=== PATIENT | female | born 1980 | race Hispanic/Latino ===

== ENCOUNTER 2024-09-28 07:11 | Emergency (ER) | payer BC ==
[~2024-09-28] VITALS: Ht 154.9 cm; Wt 59.0 kg
[2024-09-28 07:16] VITALS: RESP 18; TEMP 98.3
[2024-09-28] MEDS: SODIUM CHLORIDE 0.9% 1000ML 1,000 ML IV STA (07:37)
[2024-09-28] MEDS: ONDANSETRON HCL INJ 2MG/ML 2ML 2 MG/ML VIAL IV STA (07:37)
[2024-09-28 07:47] VITALS: PULSE 71; O2SAT 100
[2024-09-28] MEDS: KETOROLAC TROMETHAMINE 30 MG/ML VIAL IV STA (07:53)
[2024-09-28 07:59] LABS: BASOPHILS % 0.3 % (0.0-1.0); EOSINOPHILS % 0.2 % (0.0-6.0); HEMOGLOBIN 12.5 g/dL (12.0-16.0); LYMPHOCYTES % 17.4 % (18.0-39.1); MEAN CORPUSCULAR HEMOGLOBIN 26.5 pg (28-32); MEAN CORPUSCULAR HGB CONC 32.9 g/dL (31-35); MEAN CORPUSCULAR VOLUME 80.7 fL (81-99); MONOCYTES # (AUTO) 0.6 (0.2-0.8); MONOCYTES % 5.2 % (4.4-11.3); NEUTROPHILS # (AUTO) 8.8 (2.1-6.9); NEUTROPHILS % 76.6 % (38.7-80.0); PLATELET COUNT 369 x10e3/uL (140-360); RED BLOOD COUNT 4.71 x10e6/uL (3.6-5.1); RED CELL DISTRIBUTION WIDTH 20.2 % (11.7-14.4); WHITE BLOOD COUNT 11.45 x10e3/uL (4.8-10.8)
[2024-09-28 08:10] LABS: BILIRUBIN,URINE NEGATIVE (NEGATIVE); CLARITY,URINE CLEAR (CLEAR); COLOR,URINE YELLOW (YELLOW); GLUCOSE, URINE NEGATIVE (NEGATIVE); KETONES,URINE 2+ (NEGATIVE); LEUKOCYTE ESTERASE ,URINE NEGATIVE (NEGATIVE); NITRITE,URINE NEGATIVE (NEGATIVE); PH,URINE 6.5 (5 - 7); PROTEIN,URINE DIPSTICK TRACE (NEGATIVE); RBC,URINE 21-50 /HPF (0-5); URINE UROBILINOGEN 0.2 mg/dL (0.2 - 1); WBC,URINE (MAN) 0-5 /HPF (0-5)
[2024-09-28 08:11] LABS: BACTERIA,URINE MODERATE /HPF; EPITHELIAL CELLS,URINE MODERATE /LPF
[2024-09-28 08:15] LABS: ALBUMIN 3.8 g/dL (3.5-5.0); ANION GAP 17.6 mmol/L (8-16); BILIRUBIN,TOTAL 0.3 mg/dL (0.2-1.2); CALCIUM 9.6 mg/dL (8.4-10.2); CREATININE, SERUM 0.87 mg/dL (0.57-1.11); POTASSIUM 3.6 mmol/L (3.5-5.1); TOTAL PROTEIN 7.7 g/dL (6.5-8.1)
[2024-09-28] MEDS ORDERED: IOPAMIDOL 370 MG/ML 100 ML INFUS..BTL INJ ONE (08:18)
[2024-09-28] MEDS ORDERED: FLOMAX0.4 MG PO (10:33)
[2024-09-28] MEDS ORDERED: KETOROLAC TROME10 MG PO (10:33)
[2024-09-28] MEDS ORDERED: MACROBID 100 M100 MG PO (10:33)
[2024-09-28] MEDS ORDERED: ONDANSETRON ODT4 MG PO (10:36)
== END 2024-09-28 10:44 | disposition home or self-care (01) ==
LOC: ER 07:18
DX: R10.2 Pelvic and perineal pain (principal); R82.71 Bacteriuria; N20.1 Calculus of ureter; R11.2 Nausea with vomiting, unspecified
CPT/HCPCS: 36415; 74177; 80053; 81001; 83690; 84702; 85025; 99284; J0696; J1885; J2405; J7030; Q9967